=== PATIENT | male | born 1930 | race Caucasian/White ===

== ENCOUNTER 2018-08-29 12:57 | Emergency (ER) | payer MEDICARE, OTHER ==
[~2018-08-29] VITALS: Wt 75.0 kg
[2018-08-29 13:14] VITALS: BP 140/67; PULSE 85; RESP 18
[2018-08-29] MEDS ORDERED: NEOM28OI2 TP (15:13)
--- NOTE | 2018-08-29 15:15 | ERD ---
ER Documentation Chief Complaint Chief Complaint PT HERE FOR DRESSING CHANGE ON RIGHT ARM INJURY HPI A 7-year-old male presents with a request for a wound check on her right elbow skin tear sustained last week after slipping on the snow in the [facility]. He is here for a [facility] service. He has no fevers, redness, bleeding or discharge or new complaints. He had x-rays and CT scans without additional abnormal findings. He sustained a skin avulsion on the right elbow. ROS All systems reviewed and are negative except as per history of present illness. Medications Home Meds Active Scripts Neomycin Mcneill/Bacitrac Zn/Poly (Triple Antibiotic Ointment) 28 Gm Oint...g., 28 GM TP BID for 7 Days Prov:BIA YUSUF MD 08/29/18 Physical Exam Vitals Vital Signs Date Temp Pulse Resp B/P (MAP) Pulse Ox O2 O2 Flow FiO2 Time Delivery Rate 08/29/18 98.6 85 18 140/67 98 13:14 (91) Physical Exam Const: No acute distress Head: Atraumatic Eyes: Normal Conjunctiva ENT: Normal External Ears, Nose and Mouth. Neck: Full range of motion. No meningismus. Resp: Clear to auscultation bilaterally Cardio: Regular rate and rhythm, no murmurs Abd: Soft, non tender, non distended. Normal bowel sounds Skin: No petechiae or rashes granulating skin avulsion on the right lateral elbow without erythema, discharge, bony tenderness or deformities, restricted range of motion or deficits. Back: No midline or flank tenderness Ext: No cyanosis, or edema Neur: Awake and alert Psych: Normal Mood and Affect Procedures/MDM Patient presents with a satisfactory healing skin avulsion on the right lateral elbow without signs of infection, deficits, ischemia. Wound was redressed with Xeroform, topical antibiotic cream he will discharged home with continued wound care with his primary doctor as he is returning to the [facility] in 2 days. Should otherwise recheck for fevers, redness, discharge, new worsening symptoms. Departure Diagnosis: Primary Impression: Encounter for wound re-check Condition: Stable Patient Instructions: Skin Avulsion Additional Instructions: Keep wound covered throughout most of day. Okay to allow to dry 1-2 times a day. Recommend wound check every 3-4 days. Recheck for worsening redness, discharge, new worsening symptoms. Wound should slowly heal with time. BIA YUSUF MD Aug 29, 2018 15:15
== END 2018-08-29 15:38 | disposition home or self-care (01) ==
LOC: FTE 12:57
DX: Z48.01 Encounter for change or removal of surgical wound dressing (principal)
CPT/HCPCS: 99283